=== PATIENT | female | born 1965 | race Caucasian/White ===

== ENCOUNTER 2017-06-27 07:41 | Day surgery (SDC) | payer OTHER ==
[2017-06-27 08:18] VITALS: BMI 29.1
[2017-06-27 11:17] VITALS: TEMP 98.7
[2017-06-27 11:19] VITALS: O2SAT 100
[2017-06-27 11:50] VITALS: BP 138/90; PULSE 63; RESP 16
== END 2017-06-27 12:00 | disposition home or self-care (01) ==
LOC: C.ENDO 07:41
PROVIDERS: ATTEND Specialist
DX: R25.2 Cramp and spasm (principal); K64.8 Other hemorrhoids
CPT/HCPCS: 45380; 88305; J2704; J7120